=== PATIENT | male | born 1985 | race Caucasian/White ===

== ENCOUNTER 2016-10-23 20:16 | Emergency (ER) | payer OTHER ==
[~2016-10-23] VITALS: Ht 175.2 cm; Wt 90.7 kg
[~2016-10-23 20:16] MED LIST: ANAPROX DS550 MG PO; BACTRIM DS 8001 TA1 PO; CLEOCIN150 MG PO; CORTISPORIN SUS10 ML OT; DAYPRO600 M1 PO; FIORICET 325 MG1 TAB PO; FLEXERIL10 MG PO; NAPROSYN500 MG PO; NKHM; PHARMASSURE FO0.4 MG PO; PHENERGAN25 M3 PO; ROBAXIN750 MG PO; SEPTRA DS 800 M1 TAB PO; SUBOXONE 8 MG-1 EACH SL; VICODIN 500 MG-1 TAB PO; VICODIN HP 6601 TA1 PO; ZANTAC 150150 MG PO; ZOFRAN ODT4 MG SL; ZOFRAN4 MG PO; Zofran4 MG PO
[2016-10-23] MEDS ORDERED: Zofran4 MG PO (20:29)
[2016-10-23] MEDS ORDERED: MEN'S MULTI-VI1 EACH PO (20:29)
[2016-10-23] MEDS ORDERED: ACETAMINOPHEN325 M2 PO (20:29)
[2016-10-23 21:05] LABS: BILIRUBIN NEGATIVE (NEGATIVE); BLOOD NEGATIVE (NEGATIVE); CLARITY CLEAR (CLEAR); COLOR YELLOW (YELLOW); GLUCOSE NEGATIVE (NEGATIVE); KETONE NEGATIVE (NEGATIVE); LEUKO ESTERASE NEGATIVE (NEGATIVE); NITRITE NEGATIVE (NEGATIVE); PROTEIN TRACE (NEGATIVE); SPECIFIC GRAVITY 1.025 (1.005-1.030)
[2016-10-23 21:05] LABS: BASO % 0.4 % (0.0-1.0); EOS # 0.1 10*3/uL (0.0-0.4); EOS % 0.9 % (1.0-4.0); HEMATOCRIT 43.1 % (42.0-52.0); HEMOGLOBIN 14.5 g/dl (14.0-18.0); LYMPH % 44.3 % (27.0-41.0); MEAN CELL VOLUME 85.9 fl (80.0-94.0); MEAN CORPUSCULAR HGB 28.9 pg (27.0-31.0); MEAN CORPUSCULAR HGB CONC 33.6 g/dl (33.0-37.0); MEAN PLATELET VOLUME 8.5 fl (9.6-12.3); MONO # 0.5 10*3/uL (0.1-1.0); MONO % 5.1 % (3.0-9.0); NEUT # 4.5 10*3/uL (2.3-7.9); NEUT % 49.1 % (47.0-73.0); PLATELET COUNT AUTOMATED 333 10*3/uL (130-400); RED BLOOD COUNT 5.02 10*6/uL (4.50-5.90); RED CELL DISTRI WIDTH 13.2 % (0-14.5); WHITE BLOOD COUNT 9.1 10*3/uL (4.8-10.8)
[2016-10-23 21:22] LABS: ALBUMIN 4.5 gm/dl (3.1-4.5); ALKALINE PHOSPHATASE 59 U/L (45-117); BILIRUBIN, TOTAL 0.5 mg/dl (0.2-1.0); BUN 12 mg/dl (7-24); CARBON DIOXIDE 30 mmol/L (21-32); CHLORIDE 103 mmol/L (98-107); EST GLOM FILT AFRICAN AMERICAN > 60 ml/min; GLUCOSE 84 mg/dL (65-99); POTASSIUM 4.2 mmol/L (3.5-5.1); SGOT/AST 43 IU/L (3-35); SGPT/ALT 81 U/L (12-78); SODIUM 141 mmol/L (136-145); TOTAL PROTEIN 8.5 gm/dL (6.4-8.2)
[2016-10-23 21:27] LABS: BACTERIA TRACE; MUCOUS TRACE; RBC 0-2 rbc/hpf (0-2); URINE REFLEX COMMENT NO (NO); WBC 0-2 wbc/hpf (0-5)
[2016-10-23] MEDS ORDERED: AUGMENTIN 875-875 MG PO (21:37)
== END 2016-10-23 22:56 | disposition home or self-care (01) ==
LOC: ED 20:16
PROVIDERS: Nurse Practitioner Family
DX: H65.93 Unspecified nonsuppurative otitis media, bilateral (principal); K21.9 Gastro-esophageal reflux disease without esophagitis; E66.9 Obesity, unspecified; Z79.899 Other long term (current) drug therapy; Z68.34 Body mass index [BMI] 34.0-34.9, adult

== ENCOUNTER 2016-10-29 16:20 | Emergency (ER) | payer OTHER ==
[~2016-10-29] VITALS: Ht 1798 cm; Wt 95.3 kg
[~2016-10-29 16:20] MED LIST changes: +ACETAMINOPHEN325 M2 PO; +AUGMENTIN 875-875 MG PO; +MEN'S MULTI-VI1 EACH PO
[2016-10-29 17:00] LABS: BASO # 0.1 10*3/uL (0.0-0.1); BASO % 0.6 % (0.0-1.0); EOS % 0.5 % (1.0-4.0); HEMOGLOBIN 14.1 g/dl (14.0-18.0); LYMPH # 3.6 10*3/uL (1.3-4.4); LYMPH % 40.2 % (27.0-41.0); MEAN CELL VOLUME 84.7 fl (80.0-94.0); MEAN CORPUSCULAR HGB 29.1 pg (27.0-31.0); MEAN CORPUSCULAR HGB CONC 34.4 g/dl (33.0-37.0); MEAN PLATELET VOLUME 8.7 fl (9.6-12.3); MONO # 0.6 10*3/uL (0.1-1.0); MONO % 6.3 % (3.0-9.0); NEUT # 4.6 10*3/uL (2.3-7.9); NEUT % 52.1 % (47.0-73.0); PLATELET COUNT AUTOMATED 357 10*3/uL (130-400); RED BLOOD COUNT 4.84 10*6/uL (4.50-5.90); RED CELL DISTRI WIDTH 12.7 % (0-14.5); WHITE BLOOD COUNT 8.9 10*3/uL (4.8-10.8)
[2016-10-29] MEDS ORDERED: ANUSOL-HC25 MG R (17:13)
[2016-10-29 17:17] LABS: ALBUMIN 4.3 gm/dl (3.1-4.5); ALKALINE PHOSPHATASE 60 U/L (45-117); BILIRUBIN, TOTAL 0.6 mg/dl (0.2-1.0); BUN 14 mg/dl (7-24); CARBON DIOXIDE 28 mmol/L (21-32); CHLORIDE 106 mmol/L (98-107); EST GLOM FILT AFRICAN AMERICAN > 60 ml/min; GLUCOSE 89 mg/dL (65-99); POTASSIUM 4.2 mmol/L (3.5-5.1); SGOT/AST 35 IU/L (3-35); SGPT/ALT 66 U/L (12-78); SODIUM 140 mmol/L (136-145); TOTAL PROTEIN 8.1 gm/dL (6.4-8.2)
== END 2016-10-29 17:26 | disposition home or self-care (01) ==
LOC: ED 16:20
PROVIDERS: Nurse Practitioner Family
DX: K62.89 Other specified diseases of anus and rectum (principal); K21.9 Gastro-esophageal reflux disease without esophagitis; E66.9 Obesity, unspecified; Z98.890 Other specified postprocedural states; Z68.34 Body mass index [BMI] 34.0-34.9, adult; Z79.899 Other long term (current) drug therapy

== ENCOUNTER 2016-12-12 10:09 | Emergency (ER) | payer OTHER ==
[~2016-12-12 10:09] MED LIST changes: +ANUSOL-HC25 MG R
== END 2016-12-12 11:18 | disposition home or self-care (01) ==
LOC: ED 10:09
DX: S01.111A Laceration without foreign body of right eyelid and periocular area, initial encounter (principal); R03.0 Elevated blood-pressure reading, without diagnosis of hypertension; F17.200 Nicotine dependence, unspecified, uncomplicated; K21.9 Gastro-esophageal reflux disease without esophagitis; W22.8XXA Striking against or struck by other objects, initial encounter; Y93.E1 Activity, personal bathing and showering; Y92.022 Bathroom in mobile home as the place of occurrence of the external cause; Y99.9 Unspecified external cause status

== ENCOUNTER 2019-04-30 16:41 | Emergency (ER) | payer BC ==
[~2019-04-30] VITALS: Ht 175.2 cm; Wt 95.3 kg
== END 2019-04-30 17:47 | disposition home or self-care (01) ==
LOC: ED 16:41
DX: B34.9 Viral infection, unspecified (principal); G43.909 Migraine, unspecified, not intractable, without status migrainosus

== ENCOUNTER → 2019-07-26 | Outpatient (CLI) | payer BC | LOC: MRI 10:00 | DX: R51 Headache (principal); R56.9 Unspecified convulsions ==

== ENCOUNTER 2020-09-12 15:32 | Emergency (ER) | payer OTHER ==
[~2020-09-12] VITALS: Ht 175.2 cm; Wt 97.5 kg
== END 2020-09-12 17:28 | disposition home or self-care (01) ==
LOC: ED 15:32
DX: S06.0X9A Concussion with loss of consciousness of unspecified duration, initial encounter (principal); G43.909 Migraine, unspecified, not intractable, without status migrainosus; F17.200 Nicotine dependence, unspecified, uncomplicated; Z98.890 Other specified postprocedural states; V89.2XXA Person injured in unspecified motor-vehicle accident, traffic, initial encounter; Y93.89 Activity, other specified; Y92.89 Other specified places as the place of occurrence of the external cause; Y99.8 Other external cause status

== ENCOUNTER 2021-05-19 18:07 | Emergency (ER) | payer BC ==
[~2021-05-19] VITALS: Ht 175.2 cm; Wt 97.5 kg
[2021-05-20 01:15] LABS: BASO # 0.1 10*3/uL (0.0-0.1); BASO % 0.6 % (0.0-1.0); EOS # 0.2 10*3/uL (0.0-0.4); EOS % 1.7 % (1.0-4.0); HEMATOCRIT 43.8 % (42.0-52.0); LYMPH # 4.6 10*3/uL (1.3-4.4); LYMPH % 47.4 % (27.0-41.0); MEAN CELL VOLUME 89.9 fl (80.0-94.0); MEAN CORPUSCULAR HGB CONC 33.3 g/dl (33.0-37.0); MONO # 0.6 10*3/uL (0.1-1.0); MONO % 6.5 % (3.0-9.0); NEUT # 4.2 10*3/uL (2.3-7.9); NEUT % 43.7 % (47.0-73.0); PLATELET COUNT AUTOMATED 303 10*3/uL (130-400); RED BLOOD COUNT 4.87 10*6/uL (4.50-5.90); WHITE BLOOD COUNT 9.7 10*3/uL (4.8-10.8)
[2021-05-20 01:30] LABS: ALKALINE PHOSPHATASE 49 U/L (45-117); BUN 15 mg/dl (7-24); CHLORIDE 108 mmol/L (98-107); POTASSIUM 3.8 mmol/L (3.5-5.1); SGOT/AST 13 IU/L (3-35); SGPT/ALT 31 U/L (12-78); SODIUM 138 mmol/L (136-145); TOTAL PROTEIN 7.3 gm/dL (6.4-8.2)
== END 2021-05-20 02:55 | disposition home or self-care (01) ==
LOC: ED 18:07
PROVIDERS: Emergency Medicine
DX: F41.0 Panic disorder [episodic paroxysmal anxiety] (principal); K21.9 Gastro-esophageal reflux disease without esophagitis

== ENCOUNTER 2023-03-18 11:21 | Emergency (ER) | payer SELFPAY | END 2023-03-18 11:58 | disposition left against medical advice (07) | LOC: ED 11:21 | DX: M79.602 Pain in left arm (principal); R41.0 Disorientation, unspecified; Z53.21 Procedure and treatment not carried out due to patient leaving prior to being seen by health care provider ==

== ENCOUNTER 2023-03-18 12:07 | Emergency (ER) | payer SELFPAY ==
[~2023-03-18] VITALS: Ht 175.2 cm; Wt 90.7 kg
[2023-03-18 16:10] LABS: BASO % 0.4 % (0.0-1.0); EOS # 0.1 10*3/uL (0.0-0.4); EOS % 1.3 % (1.0-4.0); LYMPH # 3.4 10*3/uL (1.3-4.4); LYMPH % 36.3 % (27.0-41.0); MEAN CELL VOLUME 90.5 fl (80.0-94.0); MEAN CORPUSCULAR HGB 30.2 pg (27.0-31.0); MEAN CORPUSCULAR HGB CONC 33.4 g/dl (33.0-37.0); MEAN PLATELET VOLUME 8.5 fl (9.6-12.3); MONO # 0.8 10*3/uL (0.1-1.0); MONO % 8.5 % (3.0-9.0); NEUT # 4.9 10*3/uL (2.3-7.9); NEUT % 53.4 % (47.0-73.0); PLATELET COUNT AUTOMATED 268 10*3/uL (130-400); RED BLOOD COUNT 4.53 10*6/uL (4.50-5.90); RED CELL DISTRI WIDTH 13.4 % (0-14.5); WHITE BLOOD COUNT 9.2 10*3/uL (4.8-10.8)
[2023-03-18 16:32] LABS: ALKALINE PHOSPHATASE 54 U/L (46-116); BUN 12 mg/dl (9-23); CHLORIDE 105 mmol/L (98-107); ETHYL ALCOHOL < 3.0 mg/dl (<3); POTASSIUM 3.5 mmol/L (3.4-5.1); SGPT/ALT 27 U/L (10-49); TOTAL PROTEIN 7.1 gm/dL (6.0-8.0)
[2023-03-18 16:54] LABS: BILIRUBIN Negative (Negative); BLOOD Negative (Negative); CLARITY Turbid (Clear); COLOR Yellow (Yellow); GLUCOSE Negative (Negative); KETONE Negative (Negative); LEUKO ESTERASE Negative (Negative); NITRITE Negative (Negative); SPECIFIC GRAVITY 1.025 (1.001-1.030)
[2023-03-18 17:01] LABS: URINE AMPHETAMINES Negative (1000ng/ml); URINE BARBITURATES Negative (200ng/ml); URINE BENZODIAZEPINES Positive (200ng/ml); URINE CANNABINOIDS (THC) Positive (50ng/ml); URINE COCAINE Positive (300ng/ml); URINE METHADONE Negative (300ng/ml); URINE OPIATES Negative (300ng/ml); URINE PHENCYCLIDINE Negative (25ng/ml)
[2023-03-18 17:04] LABS: BACTERIA 1+
== END 2023-03-18 18:30 | disposition home or self-care (01) ==
LOC: ED 12:07
PROVIDERS: Nurse Practitioner Family
DX: M54.12 Radiculopathy, cervical region (principal); R07.89 Other chest pain; F19.10 Other psychoactive substance abuse, uncomplicated; G43.909 Migraine, unspecified, not intractable, without status migrainosus; Z98.890 Other specified postprocedural states; F11.20 Opioid dependence, uncomplicated

== ENCOUNTER 2024-11-23 12:58 | Emergency (ER) | payer MEDICAID ==
[~2024-11-23] VITALS: Ht 177.8 cm; Wt 95.3 kg
[2024-11-23 14:35] LABS: BILIRUBIN Negative (Negative); BLOOD Negative (Negative); CLARITY Clear (Clear); COLOR Yellow (Yellow); GLUCOSE Negative (Negative); KETONE Negative (Negative); LEUKO ESTERASE Negative (Negative); NITRITE Negative (Negative); SPECIFIC GRAVITY 1.025 (1.001-1.030)
[2024-11-23 14:53] LABS: BACTERIA TRACE; EPITHELIAL CELLS 0-2; MUCOUS 1+; RBC 0-2 rbc/hpf (0-2); WBC 0-2 wbc/hpf (0-5)
[2024-11-23] MEDS ORDERED: METHOCARBAMOL750 M1 PO (15:13)
[2024-11-23] MEDS ORDERED: METHOCARBAMOL 500 MG TAB PO ONE (15:15)
== END 2024-11-23 15:19 | disposition home or self-care (01) ==
LOC: ED 12:58
PROVIDERS: Nurse Practitioner Family
DX: S39.011A Strain of muscle, fascia and tendon of abdomen, initial encounter (principal); N50.812 Left testicular pain; G43.909 Migraine, unspecified, not intractable, without status migrainosus; K21.9 Gastro-esophageal reflux disease without esophagitis; Z98.890 Other specified postprocedural states; X58.XXXA Exposure to other specified factors, initial encounter; Y93.89 Activity, other specified; Y92.89 Other specified places as the place of occurrence of the external cause; Y99.8 Other external cause status

== ENCOUNTER 2024-12-26 10:35 | Emergency (ER) | payer MEDICAID ==
[~2024-12-26] VITALS: Ht 177.8 cm; Wt 90.7 kg
[~2024-12-26 10:35] MED LIST changes: +METHOCARBAMOL750 M1 PO
[2024-12-26] MEDS ORDERED: BROMFED DM COU118 M2 PO (14:23)
[2024-12-26] MEDS ORDERED: VIBRAMYCIN100 MG PO (14:23)
[2024-12-26] MEDS ORDERED: VENT7GM INH (14:23)
[2024-12-26] MEDS ORDERED: MEDROL DOSEPAK4 MG PO (14:23)
== END 2024-12-26 14:31 | disposition home or self-care (01) ==
LOC: ED 10:35
DX: J22 Unspecified acute lower respiratory infection (principal); F17.290 Nicotine dependence, other tobacco product, uncomplicated; Z98.890 Other specified postprocedural states